=== PATIENT | male | born 1980 | race Caucasian/White ===

== ENCOUNTER → 2016-08-19 19:30 | Outpatient (CLI) | payer BC | END | disposition home or self-care (01) | LOC: D.SLEEP 19:30 | DX: G47.33 Obstructive sleep apnea (adult) (pediatric) (principal) ==

== ENCOUNTER → 2016-09-09 19:24 | Outpatient (CLI) | payer BC | END | disposition home or self-care (01) | LOC: D.SLEEP 19:24 | DX: G47.33 Obstructive sleep apnea (adult) (pediatric) (principal) ==